=== PATIENT | female | born 1965 | race Caucasian/White ===

== ENCOUNTER 2021-09-26 13:17 | Emergency (ER) | payer OTHER, SELFPAY ==
--- NOTE | ~2021-09-26 | XR_ITS ---
EXAMINATION: XR foot RT min 3V DATE: 09/26/2021 13:35 INDICATION: Right foot injury. TECHNIQUE: 4 views of right foot were obtained. COMPARISON: None. FINDINGS: There is moderate hallux valgus. There is an oblique fracture of diaphysis of first proxima l phalanx. The distal fracture fragment demonstrates 13 degrees lateral angulation and 2 mm dorsal di splacement. There is mild osteoarthritis of first metatarsophalangeal joint and second distal interph alangeal joint. There is an enthesophyte at plantar aspect of calcaneal tuberosity. IMPRESSION: 1. Oblique fracture of diaphysis of first proximal phalanx. 2. Moderate hallux valgus. 3. Mild polyarticular osteoarthritis. Reviewed, dictated and finalized at location A.
--- NOTE | 2021-09-26 13:24 | ED.LOWEXIN ---
HPI - Extremity Injury (Lower) General Chief Complaint: Extremity Injury, Lower Stated Complaint: right 1st digit toe Time Seen by Provider: 09/26/21 13:24 Source: patient and RN notes reviewed Mode of arrival: ambulatory Limitations: no limitations History of Present Illness HPI Narrative: 56-year-old female presents to the [facility] with complaint of right great toe pain, bruising and swelling. Pain reports that she was playing with her dogs yesterday and thinks she bent her toe backwards, unsure of injury. Patient denies any past medical or surgical history. Has applied ice, taken Advil. Related Data Home Medications Medication Instructions Recorded Confirmed No Home Medications 09/26/21 09/26/21 Allergies Allergy/AdvReac Type Severity Reaction Status Date / Time cyclobenzaprine Allergy Mild Itching Verified 09/26/21 13:31 codeine Allergy Unknown Itching Verified 09/26/21 13:31 Review of Systems Review of Systems: All systems reviewed & are unremarkable except as noted in HPI and below Constitutional: Constitutional: Reports no additional constitutional complaints, Denies chills and Denies fever(s) Eyes: Eyes: Reports no additional eye complaints ENT: Reports system reviewed and no additional complaints, except as documented Cardiovascular: Cardiovascular: Reports no additional cardiovascular complaints Respiratory: Respiratory: Reports no additional respiratory complaints Musculoskeletal: Musculoskeletal: Reports as per HPI Comments: Right great toe pain swelling bruising Integumentary/Breasts: Skin/Breast: Reports as per HPI Neurologic: Reports system reviewed and no additional complaints, except as documented Psychiatric: Psychiatric: Reports no additional psychiatric complaints Allergic/Immunologic: Allergic/Immunologic: Reports no additional allergic/immunologic complaints PMFSH Past Medical History Medical History (Updated 09/27/21 @ 17:27 by Joslyn Hollis) Patient denies medical problems Surgical History Surgical History (Updated 09/27/21 @ 17:25 by Joslyn Hollis) No significant past surgical history Social History Social History (Updated 09/27/21 @ 17:25 by Joslyn Hollis) Gender identity (if verbalized by the patient): Female Comments At the time of my signature, I reviewed and agree with the nursing past medical, surgical, social, and family history. There is no relevant family history pertinent to the patient complaint. Exam Const: General: no acute distress and alert Nutritional Appearance: well nourished Orientation/consciousness: patient oriented x3 Limitations: no limitations HENMT: Head: normal to inspection Eyes: Pupils: Equal, round and reactive pupils present Neck: Neck: normal visual inspection, no lymphadenopathy and no meningeal signs Chest: Chest palpation & inspection: normal inspection of the chest Resp: Effort & Inspection: normal respiratory effort and no use of accessory muscles Auscultation: clear to auscultation bilaterally, no crackles, no rales, no rhonchi and no wheezes Cardio: Rate: regular rate Back/Spine/Pelvis: Back: no CVA tenderness Skin: Wounds: no wounds Other: No open wounds, right great toe and dorsal foot bruise, swollen Neuro: General: patient oriented x3, moves all extremities, no meningeal signs and no focal motor deficits Speech: normal speech Gait exam (Neuro): gait abnormal (Walks with a limp favoring right foot) Extrem: General: full ROM, capillary refill normal and normal exam except as noted Left lower extremity: foot Details: ecchymosis (Right great toe) Ankle/foot/toe images: 1. Tenderness to palpation and with movement, swelling, bruising noted. Capillary refill distal to injury under 2 seconds. Sensation intact. Psych: Appearance: grossly normal and well kempt Mental Status: mental status grossly normal Affect: normal affect Attitude: cooperative Thought content: Yes Normal thought content pres
[2021-09-26 13:26] VITALS: BP 172/69; PULSE 86; RESP 16; TEMP 36.6; O2SAT 100
== END 2021-09-26 14:12 | disposition home or self-care (01) ==
PROVIDERS: Emergency Provider Nurse Practitioner
DX: S92.411A Displaced fracture of proximal phalanx of right great toe, initial encounter for closed fracture (principal); X58.XXXA Exposure to other specified factors, initial encounter; Z85.3 Personal history of malignant neoplasm of breast
CPT/HCPCS: 73630; 99214; G0463

== ENCOUNTER 2022-02-08 14:59 | Emergency (ER) | payer OTHER, SELFPAY ==
--- NOTE | ~2022-02-08 | XR_ITS ---
EXAMINATION: XR chest 2V DATE: 02/08/2022 16:01 INDICATION: One month of nonproductive cough TECHNIQUE: frontal and lateral views of the chest were obtained. COMPARISON: Chest radiograph dated 11/30/2004 FINDINGS: The lungs remain clear with no focal airspace opacities, pulmonary edema, pleural effusion or pneumot horax. The cardiomediastinal silhouette is normal. Anterior plate-screw fixation for lower cervical a nterior spinal fusion. Cholecystectomy clips in right upper quadrant. Moderate disc height loss at T7 -T8. Otherwise mild thoracic spondylosis. IMPRESSION: 1. No acute cardiopulmonary disease. Reviewed, dictated and finalized at location A.
[2022-02-08 15:07] VITALS: BP 157/89; PULSE 106; RESP 16; TEMP 37.1; O2SAT 98
--- NOTE | 2022-02-08 15:29 | ED.GENADULT ---
HPI - General Adult General Chief complaint: Upper Respiratory Infection Stated complaint: cough Source: patient Mode of arrival: ambulatory Limitations: no limitations History of Present Illness HPI narrative: Patient presents for evaluation of cough for the last 4 weeks. She states that cough is nonproductive. She has associated exertional dyspnea. She denies any fever, chills, chest pain/tightness, otalgia, sore throat, nausea, vomiting, diarrhea. She tried taking 500 mg of her 's leftover amoxicillin twice daily for a week without improvement in her symptoms thereafter. She has a history of breast cancer and underwent chemo, radiation and lumpectomy in the past. No personal or family history of DVT or PE to her knowledge. She is a former smoker. She states she has peripheral arterial disease and atherosclerosis, and previously underwent femoral-femoral bypass. She states she also has some vascular disease in her subclavian. She has tried dayquil, nyquil and cough drops without improvement in her symptoms. Related Data Home Medications Medication Instructions Recorded Confirmed Probiotic 02/08/22 Vitamins 02/08/22 Allergies Allergy/AdvReac Type Severity Reaction Status Date / Time cyclobenzaprine Allergy Mild Itching Verified 09/26/21 13:31 codeine Allergy Unknown Itching Verified 09/26/21 13:31 Review of Systems Review of Systems: CONSTITUTIONAL: Denies fever, chills, or sweats. EYES: Denies visual changes, redness, or discharge. ENT: Denies rhinorrhea, congestion, sore throat, or otalgia. CARDIOVASCULAR: Denies chest pain, palpitations, or edema. RESPIRATORY: Reports cough and shortness of breath GASTROINTESTINAL: Denies abdominal pain, nausea, vomiting, or diarrhea. GENITOURINARY: Denies dysuria or hematuria. SKIN: Denies rash or itching. MUSCULOSKELETAL: Denies back pain, joint pain, or myalgia. NEUROLOGIC: Denies headache, numbness, dizziness, or weakness. PSYCHIATRIC: Denies anxiety or depression. [facility] Past Medical History Medical History (Updated 02/08/22 @ 16:41 by Luipllo Owens, SOILA, ) Atherosclerosis History of breast cancer Patient denies medical problems Peripheral arterial disease Surgical History Surgical History History of lumpectomy S/P femoral-femoral bypass surgery Family History Family History Mother , Car accident No problems noted. Father Heart disease Social History Social History Smoking status: Former smoker Substance use: never Gender identity (if verbalized by the patient): Female Spiritual care concerns: No Exam Narrative: GENERAL: Well-appearing, well-nourished, and in no acute distress. HEAD: Normocephalic, atraumatic. EYES: PERRLA and EOMI. ENT: Nares clear, no rhinorrhea or epistaxis. Mucous membranes moist. Oropharynx without tonsillar hypertrophy exudate or other lesions. Bilateral TMs pearly hardin nonbulging NECK: Supple. No adenopathy or masses. No carotid bruits or JVD CHEST: Wheezing and rales noted in bilateral lung bates posteriorly. HEART: Rate 108. Normal rhythm. No murmur heard. Normal peripheral pulses. ABDOMEN: Soft, nontender, nondistended, normal active bowel sounds. EXTREMITIES: Normal range of motion. No edema. SKIN: Warm, dry, no rash. NEURO: No focal deficits. Alert and oriented x3. PSYCH: Normal mood and affect. Course Course Emergency Course: This is a 56-year-old female who presented with complaints of a cough for the last 4 weeks. Chest x-ray negative. Covid negative. Influenza a positive. While there is a reasonable explanation for patient's cough, duration of time in which she would be influenza a positive would not be 4 weeks. Given hx of smoking, breast cancer with hx of vascular pathology, she wo
--- NOTE | 2022-02-08 15:46 | ECG_ITS ---
Measurements Intervals [place] Rate: 96 P: 3 MN: 132 QRS: 11 QRSD: 82 T: 2 QT: 339 QTc: 428 Interpretive Statements SINUS RHYTHM WITHIN NORMAL LIMITS NO PREVIOUS ECG AVAILABLE FOR COMPARISON Electronically Signed On 02-09-2022 14:09:24 CDT by Major Vazquez M.D.
== END 2022-02-08 16:35 | disposition short-term general hospital (02) ==
LOC: EXPCOLL 15:00
PROVIDERS: Emergency Provider Nurse Practitioner
DX: J10.1 Influenza due to other identified influenza virus with other respiratory manifestations (principal); R05.9 Cough, unspecified; R06.02 Shortness of breath; Z20.822 Contact with and (suspected) exposure to COVID-19; Z85.3 Personal history of malignant neoplasm of breast; I73.9 Peripheral vascular disease, unspecified; Z87.891 Personal history of nicotine dependence; I70.90 Unspecified atherosclerosis
CPT/HCPCS: 71046; 87426; 87804; 93005; 99213; C9803; G0463

== ENCOUNTER 2022-02-08 16:58 | Emergency (ER) | payer OTHER, SELFPAY ==
[2022-02-08 17:01] VITALS: BP 134/88; PULSE 100; RESP 14; TEMP 36.8; O2SAT 99
--- NOTE | 2022-02-08 18:03 | ED.URI ---
HPI - URI/Sore Throat General Chief Complaint: Upper Respiratory Infection Stated Complaint: cough for 4 weeks Time Seen by Provider: 02/08/22 17:33 Source: patient History of Present Illness HPI Narrative: Patient is referred from urgent care for further evaluation. Patient reports history of cough for approximately 4 weeks not improving with [id number] medication so she went to urgent care for evaluation. Patient did have a history of breast cancer significant smoking history and given the duration of the cough she was referred to the ER from the urgent care for further evaluation concern for PEs. Patient denied prior history of blood clot denies any recent hospitalization or surgeries she denies any chest pain or shortness of breath at the time of my evaluation Related Data Home Medications Medication Instructions Recorded Confirmed Probiotic 02/08/22 Vitamins 02/08/22 Allergies Allergy/AdvReac Type Severity Reaction Status Date / Time cyclobenzaprine Allergy Mild Itching Verified 09/26/21 13:31 codeine Allergy Unknown Itching Verified 09/26/21 13:31 Review of Systems Review of Systems: CONSTITUTIONAL: Denies fever, chills, or sweats. EYES: Denies visual changes, redness, or discharge. ENT: Denies rhinorrhea, congestion, sore throat, or otalgia. CARDIOVASCULAR: Denies chest pain, palpitations, or edema. RESPIRATORY: Reports cough GASTROINTESTINAL: Denies abdominal pain, nausea, vomiting, or diarrhea. GENITOURINARY: Denies dysuria or hematuria. SKIN: Denies rash or itching. MUSCULOSKELETAL: Denies back pain, joint pain, or myalgia. NEUROLOGIC: Denies headache, numbness, dizziness, or weakness. PSYCHIATRIC: Denies anxiety or depression. All systems reviewed & are unremarkable except as noted in HPI and below PMFSH Past Medical History Medical History Atherosclerosis History of breast cancer Patient denies medical problems Peripheral arterial disease Surgical History Surgical History History of lumpectomy S/P femoral-femoral bypass surgery Family History Family History Mother , Car accident No problems noted. Father Heart disease Social History Social History Smoking status: Former smoker Substance use: never Gender identity (if verbalized by the patient): Female Spiritual care concerns: No Exam Narrative: GENERAL: Well-appearing, well-nourished, and in no acute distress. HEAD: Normocephalic, atraumatic. EYES: PERRLA and EOMI. ENT: Nares clear, no rhinorrhea or epistaxis. Mucous membranes moist. NECK: Supple. No masses. No JVD CHEST: Clear to auscultation. No respiratory distress. No wheezes rales or rhonchi HEART: Regular rate and rhythm. No murmur heard. Normal peripheral pulses. ABDOMEN: Soft, nontender, nondistended, normal active bowel sounds. EXTREMITIES: Normal range of motion. No edema. SKIN: Warm, dry, no rash. NEURO: No focal deficits. Alert and oriented x3. PSYCH: Normal mood and affect. Course Vital Signs Vital signs: Vital Signs Temperature 36.8 C 02/08/22 17:01 Pulse Rate 100 02/08/22 17:01 Respiratory Rate 14 02/08/22 17:01 Blood Pressure 134/88 02/08/22 17:01 Pulse Oximetry 99 02/08/22 17:01 Temperature 36.8 C 02/08/22 17:01 Pulse Rate 77 02/08/22 18:13 Respiratory Rate 18 02/08/22 18:13 Blood Pressure 134/88 02/08/22 17:01 Pulse Oximetry 99 02/08/22 18:13 MDM - URI/Sore Throat MDM Narrative Medical decision making narrative: H&P as above, vss, pt looks clinically well, exam reassuring, prior imaging reviewed and clinically unremarkable labs and additional imaging offered however feel symptoms are most suggestive of bronchitis given her significant smoking history given lo
[2022-02-08 18:13] VITALS: PULSE 77; RESP 18; O2SAT 99
== END 2022-02-08 18:13 | disposition home or self-care (01) ==
PROVIDERS: Emergency Provider Emergency Medicine
DX: J10.1 Influenza due to other identified influenza virus with other respiratory manifestations (principal); J40 Bronchitis, not specified as acute or chronic; Z85.3 Personal history of malignant neoplasm of breast; Z87.891 Personal history of nicotine dependence
CPT/HCPCS: 99283